=== PATIENT | female | born 1990 | race Caucasian/White ===

== ENCOUNTER 2019-11-01 22:05 | Emergency (ER) | payer MEDICAID ==
[~2019-11-01] VITALS: Ht 162.6 cm; Wt 93.0 kg
[2019-11-02 01:48] VITALS: BP 142/64
== END 2019-11-02 00:56 | disposition left against medical advice (07) ==
LOC: ER 22:05
DX: R10.9 Unspecified abdominal pain (principal); Z53.21 Procedure and treatment not carried out due to patient leaving prior to being seen by health care provider